=== PATIENT | female | born 1990 | race Caucasian/White ===

== ENCOUNTER 2017-02-06 20:50 | Emergency (ER) | payer MEDICAID ==
[~2017-02-06] VITALS: Ht 162.6 cm; Wt 60.8 kg
[2017-02-06 21:02] VITALS: BP 128/100
--- NOTE | 2017-02-06 21:11 | NUR ---
PATIENT TO ER BED 6
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
[2017-02-06] MEDS ORDERED: KETOROLAC 30 MG/ML VIAL IVP ONE (21:40)
[2017-02-06 23:15] VITALS: BP 116/82
== END 2017-02-06 23:15 | disposition home or self-care (01) ==
LOC: MED 20:50
DX: S42.032A Displaced fracture of lateral end of left clavicle, initial encounter for closed fracture (principal); S42.012A Anterior displaced fracture of sternal end of left clavicle, initial encounter for closed fracture; M54.2 Cervicalgia; V89.2XXA Person injured in unspecified motor-vehicle accident, traffic, initial encounter; Y93.89 Activity, other specified; Y92.89 Other specified places as the place of occurrence of the external cause; Y99.8 Other external cause status
CPT/HCPCS: 72050; 73030; 96374; 99284; J1885